=== PATIENT | male | born 1985 | race Caucasian/White ===

== ENCOUNTER 2019-02-26 15:51 | Emergency (ER) | payer OTHER ==
[2019-02-26 15:55] VITALS: BP 118/72; PULSE 68; RESP 18; TEMP 97.4
--- NOTE | 2019-02-26 16:21 | XR ---
EXAMINATION TYPE: XR knee complete LT DATE OF EXAM: 02/26/2019 CLINICAL HISTORY: Fall injury with pain. TECHNIQUE: Three views of the left knee are obtained. COMPARISON: None. FINDINGS: Exam noted slightly suboptimal and patient is unable to completely extend knee. There is n o acute fracture/dislocation clearly evident in left knee. Mild narrowing patellofemoral compartment is present. The overlying soft tissue appears unremarkable. IMPRESSION: There is no acute fracture or dislocation in the left knee.
--- NOTE | 2019-02-26 17:00 | ED ---
Lower Extremity Injury HPI - General Chief Complaint: Extremity Injury, Lower Stated Complaint: lt knee injury Source: patient Mode of arrival: ambulatory Limitations: no limitations - History of Present Illness Initial Comments: 33-year-old male presenting for left knee pain. Patient states that he was going downstairs and felt a pop in his left knee. Patient denies dislocation he denies numbness tingling loss sensation coolness or pallor of the extremity. Patient states she had difficulty fully extending the knee secondary to pain. Patient did note left knee swelling. She applied ice elevate the knee however when pain persisted he presents emergency department for evaluation. Patient is able to weight-bear however he states is painful. Patient denies fall injury to head or neck remaining review of systems negative, patient denies any recent fever, chills, shortness of breath, chest pain, back pain, abdominal pain, nausea or vomiting, numbness or tingling, dysuria or hematuria, constipation or diarrhea, headaches or visual changes, or any other complaints. - Related Data Allergies Allergy/AdvReac Type Severity Reaction Status Date / Time No Known Allergies Allergy Verified 02/26/19 15:55 Review of Systems ROS Statement: Those systems with pertinent positive or pertinent negative responses have been documented in the HPI. ROS Other: All systems not noted in ROS Statement are negative. Past Medical History Past Medical History: No Reported History History of Any Multi-Drug Resistant Organisms: None Reported Past Surgical History: No Surgical Hx Reported Past Psychological History: No Psychological Hx Reported Smoking Status: Current every day smoker Past Alcohol Use History: None Reported Past Drug Use History: Marijuana General Exam - General Exam Comments Initial Comments: General: The patient is awake and alert, in no distress, and does not appear acutely ill. Eye: Pupils are equal, round and reactive to light, extra-ocular movements are intact. No nystagmus. There is normal conjunctiva bilaterally. No signs of icterus. Ears, nose, mouth and throat: There are moist mucous membranes and no oral lesions. Neck: The neck is supple, there is no tenderness or JVD. Cardiovascular: There is a regular rate and rhythm. No murmur, rub or gallop is appreciated. Respiratory: Lungs are clear to auscultation, respirations are non-labored, breath sounds are equal. No wheezes, stridor, rales, or rhonchi. Musculoskeletal: Normal ROM of the LE b/l patient complains of tenderness with full flexion and extension of the left knee, no tenderness of the right knee. Very mild soft tissue swelling of the left knee comparison with the right. No noted laxity. Strength 5/5 of the right LE and left was not tested secondary to pain. Sensation intact of all proximal distal to injury site. Dorsalis pedis pulses equal bilaterally 2+. Neurological: A&O x 3. CN II-XII intact, There are no obvious motor or sensory deficits. Coordination appears grossly intact. Speech is normal. Skin: Skin is warm and dry and no rashes or lesions are noted. Psychiatric: Cooperative, appropriate mood & affect, normal judgment. Limitations: no limitations Course Vital Signs 02/26/19 02/26/19 15:52 17:10 Temperature 97.4 F L 97.4 F L Pulse Rate 68 68 Respiratory 18 18 Rate Blood Pressure 118/72 118/72 O2 Sat by Pulse 98 98 Oximetry Medical Decision Making - Medical Decision Making 33-year-old male presenting for left knee pain traumatic. No dislocation on history taking. Patient has intact neurovascular exam. Extensor mechanism is intact. Patient has no acute osseous injury imaging studies. Concern for ligamentous injury patient was placed in knee immobilizer given prescription for crutches as well as orthopedic surgery outpatient follow-up. Patient is agreeable plan of care including rice instruction and NSAIDs with close follow- up. Patient verbalized understanding importance of orthopedic surgery evaluation. I discussed case with him provider Dr. Lyons who is agreeable pa tient care plan and discharged today Disposition Clinical Impression: Left knee pain, Strain of left knee Disposition: HOME SELF-CARE Condition: Good Instructions (If sedation given, give patient instructions): Knee Sprain (ED), Knee Pain (ED) Additional Instructions: Please use medication as discussed. Please follow-up with orthopedic surgery in next 1-2 days, is not weight-bear on left leg, use crutches for walking. Please return to emergency room if the symptoms increase or worsen or for any other concerns. Is patient prescribed a controlled substance at d/c from ED?: No Referrals: None,Stated [Primary Care Provider] - 1-2 days Ze Marshall MD [STAFF PHYSICIAN] - 1-2 days Time of Disposition: 17:00
== END 2019-02-26 17:10 | disposition home or self-care (01) ==
LOC: EC 15:51
DX: S86.912A Strain of unspecified muscle(s) and tendon(s) at lower leg level, left leg, initial encounter (principal); F17.200 Nicotine dependence, unspecified, uncomplicated; X50.9XXA Other and unspecified overexertion or strenuous movements or postures, initial encounter
CPT/HCPCS: 99283